=== PATIENT | female | born 1935 | race Caucasian/White ===

== ENCOUNTER 2019-04-20 01:55 | Emergency (ER) | payer MEDICARE, OTHER ==
[2019-04-20] MEDS ORDERED: cloNIDine 0.1 MG TAB ONE (02:21)
== END 2019-04-20 03:38 | disposition home or self-care (01) ==
LOC: ERS 01:55
DX: I10 Essential (primary) hypertension (principal); Z79.899 Other long term (current) drug therapy
CPT/HCPCS: 99283

== ENCOUNTER 2019-08-28 08:56 | Observation (INO) | payer MEDICARE, OTHER ==
[2019-08-28 09:38] LABS: #Lymphocytes 0.9 thou/uL (1.20-3.40); #Monocytes 0.5 thou/uL (0.11-0.59); #Neutrophils 6.6 thou/uL (1.40-6.50); %Basophils 0.4 % (0.0-1.0); %Eosinophils 0.4 % (0.0-10.0); %Lymphocytes 11.7 % (21.0-51.0); %Monocytes 5.7 % (0.0-10.0); %Neutrophils 81.8 % (42.0-75.0); Hemoglobin 15.1 g/dL (12.0-16.0); Mean Corpuscular HGB CONC 33.4 g/dL (32.0-36.0); Mean Corpuscular Hemoglobin 31.9 pg (27.0-31.0); Mean Corpuscular Volume 95.8 fL (78.0-98.0); Mean Platelet Volume 6.6 fL (7.4-10.4); Platelet Count 260 thou/uL (130-400); RBC Distribution Width 12.4 % (11.5-14.5); Red Blood Cell (RBC) Count 4.73 mill/uL (4.20-5.40); White Blood Cell (WBC) Count 8.1 thou/uL (4.8-10.8)
[2019-08-28 09:44] LABS: INR-International Normal Ratio 2.3; Prothrombin Time 25.3 SEC (12.0-14.7)
[2019-08-28 10:02] LABS: ALT (SGPT) 13 U/L (8-55); AST (SGOT) 19 U/L (5-34); Albumin 4.2 g/dL (3.4-4.8); Alkaline Phosphatase 118 U/L (40-110); Anion Gap 12 mmol/L (10-20); BUN (Urea Nitrogen) 15 mg/dL (9.8-20.1); Bilirubin, Total 1.6 mg/dL (0.2-1.2); Calc. Creatinine Clearance 0 mL/min (70-130); Calcium 10.3 mg/dL (7.8-10.44); Carbon Dioxide 29 mmol/L (23-31); Chloride 102 mmol/L (98-107); Estimated GFR-MDRD 64; Globulin 3.3 g/dL (2.4-3.5); Glucose 146 mg/dL (83-110); Protein, Total 7.5 g/dL (6.0-8.3); Sodium 140 mmol/L (136-145)
[2019-08-28] MEDS ORDERED: Magnesium 2 GM/50 ML BAG (IN WATER) ONE (10:30)
[2019-08-28] MEDS ORDERED: Potassium Chloride 40 MEQ in Sodium Chloride 0.9% 250 ML 250 ML IVPB SCH (10:45)
[2019-08-28] MEDS ORDERED: Sodium Chloride 0.9% 1,000 ML IV SCH (12:15)
--- NOTE | 2019-08-28 12:21 | PDOC.HHP ---
Hospitalist HPI - History of Present Illness GI bleed History of Present Illness: The patient is a 83/F with PMH significant for chronic afib on xarelto, that presents to the ER for the above complaint. Patient reports at approximately 0130 this morning, she saw BRB in the commode after having a BM. Unsure of quantity. Reports having one more episode and reports small amount of blood on toilet tissue, but has not had any episodes since. Denies any abdominal pain. Denies pain with BM. Denies hematemesis, light headedness, dizziness or nausea. Last colonoscopy in the 80s per patient, no abnormal findings. ED Course: BP: 161/80, MAP: 107, Pulse: 77, Resp: 21, Pain: 0, O2 sat: 96 on (Room Air) EKG afib, rate controlled 80s, with prolong QT FOBT + Hgb 15.1 Hct 45.3 PT 25.3 PTT 40 INR 2.3 K+ 3.0 Mg 2.0 Given 40mEQ K IVPB 2 gm Mg IVPB Hospitalist ROS - Review of Systems Constitutional: denies: fever, chills, sweats, weakness, malaise, other ENT: denies: ear pain, ear discharge, nose pain, nose discharge, nose congestion , mouth pain, mouth swelling, throat pain, throat swelling, other Respiratory: denies: cough, dry, shortness of breath, hemoptysis, SOB with excertion, pleuritic pain, sputum, wheezing, other Cardiovascular: denies: chest pain, palpitations, orthopnea, paroxysmal noc. dyspnea, edema, light headedness, other Gastrointestinal: reports: hematochezia. denies: nausea, vomiting, abdominal pain, diarrhea, constipation Genitourinary: denies: dysuria, frequency, incontinence, hematuria, retention, other Musculoskeletal: denies: back pain Skin: denies: rash, bruising Neurological: denies: weakness, numbness, incoordination, change in speech, confusion, seizures, other Hospitalist History - Past Medical History Source: patient Cardiac: reports: AFIB, HTN, Hyperlipidemia - Past Surgical History Past Surgical History: reports: Hysterectomy, Other Other Surgical History: Left hip surgery 2007 - Family History Family History: reports: hypertension - Social History Smoking Status: Never smoker Alcohol: reports: None Drugs: reports: none Living Situation: With Family 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, retired tax worker Activity level: independent ambulation - Exam General Appearance: NAD, awake alert Eye: anicteric sclera Neck: supple, no JVD, no thyromegaly Heart: no murmur, no gallops, no rubs, normal peripheral pulses, irregular Respiratory: CTAB, no wheezes, no rales, no ronchi, no tachypnea Gastrointestinal: soft, non-tender, non-distended, normal bowel sounds, no guarding, no rigidity Extremities: no cyanosis, no clubbing Extremities - other findings: trace edema BLE Neurological: no focal deficits Musculoskeletal: normal tone, normal strength Psychiatric: normal affect, A&O x 3 Hospitalist Results - Labs Result Diagrams: 08/28/19 09:28 08/28/19: Lab results: WBC 8.1 thou/uL (4.8-10.8) 08/28/19: Hgb 15.1 g/dL (12.0-16.0) 08/28/19: Hct 45.3 % (36.0-47.0) 08/28/19: MCV 95.8 fL (78.0-98.0) 08/28/19: Plt Count 260 thou/uL (130-400) 08/28/19: Neutrophils % 81.8 % (42.0-75.0) H 08/28/19: Sodium 140 mmol/L (136-145) 08/28/19: Potassium 3.0 mmol/L (3.5-5.1) L 08/28/19: Chloride 102 mmol/L (98-107) 08/28/19: Carbon Dioxide 29 mmol/L (23-31) 08/28/19: BUN 15 mg/dL (9.8-20.1) 08/28/19: Creatinine 0.84 mg/dL (0.6-1.1) 08/28/19:28 Glucose 146 mg/dL (83-110) H 08/28/19: Calcium 10.3 mg/dL (7.8-10.44) 08/28/19: Total Bilirubin 1.6 mg/dL (0.2-1.2) H 08/28/19 09:28 AST 19 U/L (5-34) 08/28/19 09:28 ALT 13 U/L (8-55) 08/28/19 09:28 Alkaline Phosphatase 118 U/L (40-110) H 08/28/19 09:28 Serum Total Protein 7.5 g/dL (6.0-8.3) 08/28/19 09:28 Albumin 4.2 g/dL (3.4-4.8) 08/28/19 09:28 - EKG Interpretation EKG: afib, rate controlled Hospitalist H&P A/P - Plan Plan: Impression GI bleed Chronic Afib, rate controlled Chronic anticoagulation, Xarelto HTN HLD Plan threat monitoring analyst Stop anticoagulation trend Hgb/Hct Consult GI Hypokalemia, 3.0 Relative low magnesium CL diet GI prophylaxis Hold xarelto and all anticoagulation medications Restart home meds when reconciled Recheck CMP, CBC and Mg in am Full Code [id number] is yazan, .
[2019-08-28] MEDS ORDERED: hydrALAZINE 20 MG/ML VIAL SLOW IVP PRN (12:34)
[2019-08-28 12:38] LABS: Hemoglobin 14.8 g/dL (12.0-16.0)
[2019-08-28] MEDS ORDERED: Polyethylene Glycol 3350 17 GM Packet PO PRN (14:33)
[2019-08-28 15:30] VITALS: BMI 24.9
[2019-08-28 17:53] LABS: Hemoglobin 14.8 g/dL (12.0-16.0)
[2019-08-28 20:58] LABS: Hemoglobin 14.7 g/dL (12.0-16.0)
[2019-08-28] MEDS ORDERED: Famotidine/PF 20 mg/2ml Vial SLOW IVP SCH (21:00)
[2019-08-28] MEDS ORDERED: Simvastatin 5 MG TAB PO SCH (21:00)
[2019-08-28] MEDS ORDERED: Hydrochlorothiazide 25 MG TAB PO SCH (21:00)
[2019-08-28] MEDS ORDERED: Losartan 25 MG TAB PO SCH (22:15)
[2019-08-29 04:59] LABS: #Eosinphils 0.3 thou/uL (0.0-0.7); #Lymphocytes 2.1 thou/uL (1.20-3.40); #Monocytes 0.8 thou/uL (0.11-0.59); #Neutrophils 5.4 thou/uL (1.40-6.50); %Basophils 0.5 % (0.0-1.0); %Eosinophils 3.9 % (0.0-10.0); %Lymphocytes 23.7 % (21.0-51.0); %Monocytes 9.6 % (0.0-10.0); %Neutrophils 62.3 % (42.0-75.0); Hemoglobin 13.3 g/dL (12.0-16.0); Mean Corpuscular HGB CONC 33.7 g/dL (32.0-36.0); Mean Corpuscular Hemoglobin 32.2 pg (27.0-31.0); Mean Corpuscular Volume 95.6 fL (78.0-98.0); Mean Platelet Volume 7.3 fL (7.4-10.4); Platelet Count 207 thou/uL (130-400); RBC Distribution Width 12.5 % (11.5-14.5); Red Blood Cell (RBC) Count 4.13 mill/uL (4.20-5.40); White Blood Cell (WBC) Count 8.7 thou/uL (4.8-10.8)
[2019-08-29 05:20] LABS: ALT (SGPT) 10 U/L (8-55); AST (SGOT) 17 U/L (5-34); Albumin 3.5 g/dL (3.4-4.8); Alkaline Phosphatase 100 U/L (40-110); Anion Gap 11 mmol/L (10-20); BUN (Urea Nitrogen) 11 mg/dL (9.8-20.1); Bilirubin, Total 2.1 mg/dL (0.2-1.2); Calc. Creatinine Clearance 54 mL/min (70-130); Calcium 9.5 mg/dL (7.8-10.44); Carbon Dioxide 27 mmol/L (23-31); Chloride 105 mmol/L (98-107); Estimated GFR-MDRD 76; Globulin 2.6 g/dL (2.4-3.5); Glucose 99 mg/dL (83-110); Magnesium 2.1 mg/dL (1.6-2.6); Potassium 3.3 mmol/L (3.5-5.1); Protein, Total 6.1 g/dL (6.0-8.3); Sodium 140 mmol/L (136-145)
--- NOTE | 2019-08-29 07:18 | PDOC.HOSPP ---
- Subjective Encounter Date: 08/29/19 Encounter Time: 11:45 Subjective: Patient without further bleeding in toilet, just a little on toilet paper. No dizziness/weakness. Had hard BM with first bloody stool yesterday. Ready to go home. - Objective Vital Signs & Weight: Vital Signs (12 hours) Temp Pulse Resp BP Pulse Ox 08/29/19 03:04 97.6 F 75 16 145/63 H 94 L 08/28/19 19:40 98.6 F 85 16 175/78 H 95 Weight Weight 134 lb 9.6 oz I&O: 08/28/19 08/29/19 08/30/19 06:59 06:59 06:59 Intake Total 1340 Output Total 1400 Balance -60 Result Diagrams: 08/29/19 09:12 08/29/19 04:36 Hospitalist ROS - Review of Systems Constitutional: denies: fever, chills Respiratory: denies: cough, shortness of breath Cardiovascular: denies: chest pain, palpitations Gastrointestinal: reports: constipation. denies: nausea, vomiting, abdominal pain - Medication Medications: Active Medications Generic Name Dose Route Start Last Admin Trade Name Freq PRN Reason Stop Dose Admin Hydrochlorothiazide 25 mg 08/28/19 21:00 08/28/19 21:26 Hydrochlorothiazide PO 25 mg HS MELVI Administration Metoprolol Succinate 100 mg 08/28/19 21:00 08/28/19 21:27 Toprol Xl PO 100 mg HS MELVI Administration Simvastatin 10 mg 08/28/19 21:00 08/28/19 21:26 Zocor PO 10 mg HS MELVI Administration Sodium Chloride 10 ml 08/28/19 12:08 08/28/19 21:29 Flush - Normal Saline IVF 10 ml Q12H PRN Administration Saline Flush - Exam General Appearance: NAD, awake alert Eye: PERRL Eye - other findings: mild left conjunctival erythema, no hemorrhage, no exudate ENT: moist mucosa Heart: RRR, no murmur, no gallops, no rubs Respiratory: CTAB, no wheezes, no rales, no ronchi Gastrointestinal: soft, non-tender, non-distended, normal bowel sounds Psychiatric: normal affect, normal behavior, A&O x 3 Hosp A/P (1) Lower GI bleed Code(s): K92.2 - GASTROINTESTINAL HEMORRHAGE, UNSPECIFIED Status: Resolved (2) Chronic anticoagulation Code(s): Z79.01 - SLEEVE WHEEL [employer]KER (CURRENT) USE OF ANTICOAGULANTS Status: Chronic (3) Atrial fibrillation Code(s): I48.91 - UNSPECIFIED ATRIAL FIBRILLATION Status: Chronic (4) HTN (hypertension) Code(s): I10 - ESSENTIAL (PRIMARY) HYPERTENSION Status: Chronic (5) HLD (hyperlipidemia) Code(s): E78.5 - HYPERLIPIDEMIA, UNSPECIFIED Status: Chronic - Plan H/H stable, no significant further bleeding. Hx of constipation with hemorrhoidal bleed. Stable to resume Xarelto and d/c home. Daily Miralax to keep BM soft. F/u GI outpatient.
[2019-08-29 08:20] VITALS: TEMP 97.5
[2019-08-29] MEDS ORDERED: Losartan 25 MG TAB PO SCH ×2 (09:00→21:00)
[2019-08-29] MEDS ORDERED: Pantoprazole 40 MG VIAL IVP SCH (09:00)
[2019-08-29 09:39] LABS: Hemoglobin 16.2 g/dL (12.0-16.0)
[2019-08-29] MEDS ORDERED: Potassium Chloride 20 MEQ TAB PO SCH (12:00)
[2019-08-29 12:01] VITALS: BP 179/80
--- NOTE | 2019-08-30 09:29 | DIS ---
DATE OF ADMISSION: 08/28/2019 DATE OF DISCHARGE: 08/29/2019 PRIMARY CARE PHYSICIAN: Deejay Hameed DO REASON FOR ADMISSION: Gastrointestinal bleed. DIAGNOSES ON DISCHARGE: 1. Lower gastrointestinal bleed, likely hemorrhoidal, resolved. 2. Chronic anticoagulation with Xarelto. 3. Atrial fibrillation. 4. Hypertension. 5. Hyperlipidemia. 6. Irritant conjunctivitis. PROCEDURES: None. CONSULTATIONS: None. SUMMARY OF HOSPITAL COURSE: This is an 83-year-old white female, on Xarelto for the last 5 years. She has had longstanding problems with hard bowel movements, has occasionally had some blood on the toilet paper when she wipes, thought to be from hemorrhoidal bleeding in the past. She reports that on the morning of admission, she went to the [facility], had a hard bowel movement, and saw lots of bright red blood in the commode. She had one more episode, and then after that, small amounts of blood on the toilet tissue, and so she came into the emergency room. She had no other symptoms. She had normal hemoglobin and hematocrit when she came in. She was observed overnight, had no further bloody bowel movements, just a little bit of blood on the toilet paper. Her hemoglobin remained between 13 and 16 during her hospitalization. She had no dizziness, lightheadedness, or weakness with ambulation, and she is now stable to be discharged to home. Of note, she did have some redness in her left eye the second hospital day. She reports that she has recurrent problems with this. On exam, it looks like she has a mild conjunctivitis without any discharge and I recommend she continue the eyedrops she uses at home for this. DISCHARGE MANAGEMENT: Discharged to home. ACTIVITY: As tolerated. DIET: Healthy heart diet. FOLLOWUP: Follow up with Dr. Hameed in [address] Aldana in 2 to 3 weeks, call his office for an appointment. DISCHARGE MEDICATIONS: 1. MiraLAX 17 g p.o. daily as needed to keep bowel movements soft. 2. Hydrochlorothiazide 25 mg at night. 3. Losartan 100 mg at night. 4. Toprol-XL 100 mg at night. 5. Pravastatin 20 mg at night. 6. Xarelto 20 mg at night. Job ID: [id number]
== END 2019-08-29 13:21 | disposition home or self-care (01) ==
LOC: ERS 08:56 → ERHOLD 11:18 → 2SW 14:44
PROVIDERS: ADMIT Emergency Medicine; ATTEND Emergency Medicine
DX: K92.1 Melena (principal); I48.20 Chronic atrial fibrillation, unspecified; I10 Essential (primary) hypertension; E78.5 Hyperlipidemia, unspecified; E87.6 Hypokalemia; H10.9 Unspecified conjunctivitis; Z79.01 Long term (current) use of anticoagulants; Z79.899 Other long term (current) drug therapy; Z88.2 Allergy status to sulfonamides
CPT/HCPCS: 80053 ×2; 82274; 83735 ×2; 85014 ×3; 85018 ×3; 85025 ×2; 85610; 85730; 93005; 96365; 96366 ×2; 96367; 96375; 97139; 99284; G0378 ×3; 36415; C9113; J3475; J3480; J7050

== ENCOUNTER 2020-09-03 15:40 | Inpatient (IN) | payer MEDICARE, OTHER ==
[~2020-09-03 15:40] MED LIST: Iopamidol-370 76% 500 ML 1 ML ONE
[2020-09-03] MEDS ORDERED: Morphine 4 MG/ML VIAL ONE (16:21)
[2020-09-03] MEDS ORDERED: Ondansetron PF 4 MG/2 ML Vial ONE (16:22)
[2020-09-03 16:23] LABS: #Basophils 0.1 thou/uL (0.0-0.2); #Lymphocytes 1.4 thou/uL (1.20-3.40); #Monocytes 1.7 thou/uL (0.11-0.59); #Neutrophils 16.8 thou/uL (1.40-6.50); %Basophils 0.3 % (0.0-1.0); %Eosinophils 0.1 % (0.0-10.0); %Lymphocytes 7.2 % (21.0-51.0); %Monocytes 8.3 % (0.0-10.0); %Neutrophils 84.2 % (42.0-75.0); Hemoglobin 16.1 g/dL (12.0-16.0); Mean Corpuscular Hemoglobin 32.1 pg (27.0-31.0); Mean Corpuscular Volume 94.4 fL (78.0-98.0); Mean Platelet Volume 7.2 fL (7.4-10.4); Platelet Count 283 thou/uL (130-400); RBC Distribution Width 12.7 % (11.5-14.5); Red Blood Cell (RBC) Count 5.01 mill/uL (4.20-5.40); White Blood Cell (WBC) Count 19.9 thou/uL (4.8-10.8)
[2020-09-03 16:38] LABS: ALT (SGPT) 23 U/L (8-55); AST (SGOT) 74 U/L (5-34); Albumin 3.8 g/dL (3.4-4.8); Alkaline Phosphatase 226 U/L (40-110); Anion Gap 18 mmol/L (10-20); BUN (Urea Nitrogen) 18 mg/dL (9.8-20.1); Bilirubin, Total 4.4 mg/dL (0.2-1.2); Calc. Creatinine Clearance 0 mL/min (70-130); Calcium 9.7 mg/dL (7.8-10.44); Carbon Dioxide 24 mmol/L (23-31); Chloride 96 mmol/L (98-107); Globulin 3.7 g/dL (2.4-3.5); Glucose 148 mg/dL (83-110); Lipase 126 U/L (8-78); Potassium 3.5 mmol/L (3.5-5.1); Protein, Total 7.5 g/dL (5.8-8.1); Sodium 134 mmol/L (136-145)
[2020-09-03] MEDS ORDERED: Piperacillin/Tazobactam 4.5 GM VIAL ONE (17:13)
[2020-09-03 17:42] LABS: Clarity Turbid (Clear); Specific Gravity, Urine 1.028 (1.002-1.036)
[2020-09-03 18:04] LABS: Bacteria/HPF Rare-Few HPF (None Seen)
[2020-09-03 19:22] LABS: Lactic Acid 0.9 mmol/L (0.5-2.2)
[2020-09-03] MEDS ORDERED: Acetaminophen 325 MG TAB PO PRN (19:36)
[2020-09-03] MEDS ORDERED: Ondansetron PF 4 MG/2 ML Vial IVP PRN (19:36)
[2020-09-03] MEDS ORDERED: Sodium Chloride 0.9% 1,000 ML IV SCH (19:45)
[2020-09-03] MEDS ORDERED: Morphine 2 MG/ML VIAL SLOW IVP PRN (19:46)
[2020-09-03] MEDS ORDERED: Morphine 4 MG/ML VIAL SLOW IVP PRN (19:46)
[2020-09-03 22:20] VITALS: BMI 26.2
[2020-09-03] MEDS: Piperacillin/Tazobactam 4.5 GM in Sodium Chloride 0.9% 100 ML IVPB SCH (23:56)
[2020-09-03] MEDS ORDERED: Piperacillin/Tazobactam 4.5 GM in Sodium Chloride 0.9% 100 ML IVPB SCH (23:59)
[2020-09-04] MEDS: Piperacillin/Tazobactam 4.5 GM in Sodium Chloride 0.9% 100 ML IVPB SCH ×3 (05:10→18:03)
[2020-09-04 07:04] LABS: SARS-CoV-2 PCR by NAA Not Detected (NotDetected)
[2020-09-04 07:24] LABS: #Lymphocytes 0.9 thou/uL (1.20-3.40); #Monocytes 1.1 thou/uL (0.11-0.59); #Neutrophils 13.3 thou/uL (1.40-6.50); %Basophils 0.1 % (0.0-1.0); %Eosinophils 0.1 % (0.0-10.0); %Lymphocytes 6.1 % (21.0-51.0); %Neutrophils 86.6 % (42.0-75.0); Hemoglobin 13.5 g/dL (12.0-16.0); Mean Corpuscular Hemoglobin 31.7 pg (27.0-31.0); Mean Corpuscular Volume 96.1 fL (78.0-98.0); Mean Platelet Volume 7.1 fL (7.4-10.4); Platelet Count 207 thou/uL (130-400); RBC Distribution Width 12.5 % (11.5-14.5); Red Blood Cell (RBC) Count 4.26 mill/uL (4.20-5.40); White Blood Cell (WBC) Count 15.4 thou/uL (4.8-10.8)
[2020-09-04 07:44] LABS: ALT (SGPT) 121 U/L (8-55); AST (SGOT) 159 U/L (5-34); Alkaline Phosphatase 291 U/L (40-110); Anion Gap 13 mmol/L (10-20); BUN (Urea Nitrogen) 16 mg/dL (9.8-20.1); Bilirubin, Total 6.1 mg/dL (0.2-1.2); Calc. Creatinine Clearance 62 mL/min (70-130); Calcium 8.4 mg/dL (7.8-10.44); Carbon Dioxide 23 mmol/L (23-31); Chloride 104 mmol/L (98-107); Globulin 2.6 g/dL (2.4-3.5); Glucose 120 mg/dL (83-110); Protein, Total 5.6 g/dL (5.8-8.1); Sodium 137 mmol/L (136-145)
[2020-09-04] MEDS ORDERED: Potassium Chloride 20 MEQ TAB PO SCH (08:45)
[2020-09-04] MEDS: Hydrochlorothiazide 25 MG TAB PO SCH (20:16)
[2020-09-04] MEDS: Atorvastatin Calcium 10 MG TAB PO SCH (20:16)
[2020-09-04] MEDS: Losartan 25 MG TAB PO SCH (20:16)
[2020-09-04] MEDS ORDERED: Pravastatin Sodium 20 MG TAB PO SCH (21:00)
[2020-09-05] MEDS: Piperacillin/Tazobactam 4.5 GM in Sodium Chloride 0.9% 100 ML IVPB SCH ×5 (00:28→23:21)
[2020-09-05 05:28] LABS: #Eosinphils 0.2 thou/uL (0.0-0.7); #Lymphocytes 1.4 thou/uL (1.20-3.40); #Neutrophils 11.2 thou/uL (1.40-6.50); %Basophils 0.3 % (0.0-1.0); %Eosinophils 1.5 % (0.0-10.0); %Lymphocytes 9.8 % (21.0-51.0); %Monocytes 7.1 % (0.0-10.0); %Neutrophils 81.3 % (42.0-75.0); Hemoglobin 13.3 g/dL (12.0-16.0); Mean Corpuscular HGB CONC 33.2 g/dL (32.0-36.0); Mean Corpuscular Volume 96.4 fL (78.0-98.0); Mean Platelet Volume 7.1 fL (7.4-10.4); Platelet Count 226 thou/uL (130-400); RBC Distribution Width 12.5 % (11.5-14.5); Red Blood Cell (RBC) Count 4.17 mill/uL (4.20-5.40); White Blood Cell (WBC) Count 13.7 thou/uL (4.8-10.8)
[2020-09-05 05:50] LABS: ALT (SGPT) 77 U/L (8-55); AST (SGOT) 58 U/L (5-34); Albumin 3.1 g/dL (3.4-4.8); Alkaline Phosphatase 231 U/L (40-110); Anion Gap 12 mmol/L (10-20); BUN (Urea Nitrogen) 12 mg/dL (9.8-20.1); Bilirubin, Total 3.1 mg/dL (0.2-1.2); Calc. Creatinine Clearance 61 mL/min (70-130); Calcium 8.7 mg/dL (7.8-10.44); Carbon Dioxide 26 mmol/L (23-31); Chloride 104 mmol/L (98-107); Globulin 2.6 g/dL (2.4-3.5); Glucose 97 mg/dL (83-110); Protein, Total 5.7 g/dL (5.8-8.1); Sodium 139 mmol/L (136-145)
[2020-09-05 05:53] LABS: Potassium 2.8 mmol/L (3.5-5.1)
[2020-09-05] MEDS: Potassium Chloride 20 MEQ in Premix Bag 1 BAG IVPB SCH ×2 (06:23→14:17)
[2020-09-05] MEDS ORDERED: Indomethacin 50 MG SUPP ONE (07:52)
[2020-09-05] MEDS ORDERED: Iothalamate Meglumine 60% 50 ML VIAL FS ONE (07:53)
[2020-09-05] MEDS ORDERED: Sodium Chloride 0.9% 10 ML ONE (08:52)
[2020-09-05] MEDS ORDERED: PROPOFOL 200 MG/20 ML VIAL ONE (09:50)
[2020-09-05] MEDS ORDERED: Lidocaine 1% PF 5 ML VIAL ONE (09:50)
[2020-09-05] MEDS ORDERED: Dexamethasone 20 MG/5 ML VIAL ONE (09:50)
[2020-09-05] MEDS ORDERED: Ondansetron PF 4 MG/2 ML Vial ONE (09:50)
[2020-09-05] MEDS ORDERED: Rocuronium Bromide 10 MG/ML (10ML VIAL) ONE (09:50)
[2020-09-05] MEDS ORDERED: Fentanyl 100 MCG/2 ML VIAL ONE (12:00)
[2020-09-05] MEDS ORDERED: SUGAMMADEX SODIUM 200 MG/2 ML VIAL ONE (12:51)
[2020-09-05] MEDS ORDERED: Promethazine HCl 25 MG/ML VIAL SLOW IVP PRN (13:15)
[2020-09-05] MEDS ORDERED: Ondansetron HCl/PF 4 MG/2 ML Vial IVP PRN (13:15)
[2020-09-05] MEDS ORDERED: Promethazine HCl 25 MG/ML VIAL IM PRN (13:15)
[2020-09-05 20:36] LABS: Anion Gap 26 mmol/L (10-20); BUN (Urea Nitrogen) 18 mg/dL (9.8-20.1); Calc. Creatinine Clearance 51 mL/min (70-130); Carbon Dioxide 11 mmol/L (23-31); Chloride 110 mmol/L (98-107); Glucose 165 mg/dL (83-110); Potassium 4.7 mmol/L (3.5-5.1); Sodium 142 mmol/L (136-145)
[2020-09-05] MEDS: Atorvastatin Calcium 10 MG TAB PO SCH (20:49)
[2020-09-05] MEDS: Hydrochlorothiazide 25 MG TAB PO SCH (20:50)
[2020-09-05] MEDS: Losartan 25 MG TAB PO SCH (20:54)
[2020-09-06 04:50] LABS: #Lymphocytes 0.8 thou/uL (1.20-3.40); #Monocytes 0.3 thou/uL (0.11-0.59); #Neutrophils 8.7 thou/uL (1.40-6.50); %Basophils 0.1 % (0.0-1.0); %Eosinophils 0.1 % (0.0-10.0); %Lymphocytes 8.1 % (21.0-51.0); %Monocytes 2.9 % (0.0-10.0); %Neutrophils 88.8 % (42.0-75.0); Hemoglobin 14.3 g/dL (12.0-16.0); Mean Corpuscular HGB CONC 33.7 g/dL (32.0-36.0); Mean Corpuscular Hemoglobin 32.4 pg (27.0-31.0); Mean Corpuscular Volume 96.1 fL (78.0-98.0); Mean Platelet Volume 7.3 fL (7.4-10.4); Platelet Count 242 thou/uL (130-400); RBC Distribution Width 12.4 % (11.5-14.5); White Blood Cell (WBC) Count 9.8 thou/uL (4.8-10.8)
[2020-09-06 05:02] LABS: ALT (SGPT) 60 U/L (8-55); AST (SGOT) 32 U/L (5-34); Albumin 3.3 g/dL (3.4-4.8); Alkaline Phosphatase 250 U/L (40-110); Anion Gap 14 mmol/L (10-20); BUN (Urea Nitrogen) 21 mg/dL (9.8-20.1); Bilirubin, Total 2.4 mg/dL (0.2-1.2); Calc. Creatinine Clearance 49 mL/min (70-130); Calcium 8.6 mg/dL (7.8-10.44); Carbon Dioxide 25 mmol/L (23-31); Chloride 103 mmol/L (98-107); Globulin 3.1 g/dL (2.4-3.5); Glucose 169 mg/dL (83-110); Lipase 16 U/L (8-78); Potassium 3.3 mmol/L (3.5-5.1); Protein, Total 6.4 g/dL (5.8-8.1); Sodium 139 mmol/L (136-145)
[2020-09-06] MEDS: Piperacillin/Tazobactam 4.5 GM in Sodium Chloride 0.9% 100 ML IVPB SCH ×2 (05:42→11:18)
[2020-09-06] MEDS ORDERED: Potassium Chloride 20 MEQ TAB PO SCH (06:15)
[2020-09-06] MEDS ORDERED: Enoxaparin Sodium 40 MG/0.4 ML SYRINGE SC SCH (11:15)
[2020-09-06] MEDS: Piperacillin/Tazobactam 3.375 GM in Sodium Chloride 0.9% 100 ML IVPB SCH (17:45)
[2020-09-06] MEDS: Hydrochlorothiazide 25 MG TAB PO SCH (20:56)
[2020-09-06] MEDS: Atorvastatin Calcium 10 MG TAB PO SCH (20:56)
[2020-09-06] MEDS: Losartan 25 MG TAB PO SCH (20:56)
[2020-09-06] MEDS: 1/2 NS w/KCL 20 mEq 1,000 ML IV SCH (22:03)
[2020-09-07] MEDS: Piperacillin/Tazobactam 3.375 GM in Sodium Chloride 0.9% 100 ML IVPB SCH ×4 (00:30→18:38)
[2020-09-07 05:00] LABS: #Eosinphils 0.1 thou/uL (0.0-0.7); #Lymphocytes 1.6 thou/uL (1.20-3.40); #Monocytes 0.6 thou/uL (0.11-0.59); #Neutrophils 8.9 thou/uL (1.40-6.50); %Basophils 0.2 % (0.0-1.0); %Eosinophils 0.9 % (0.0-10.0); %Lymphocytes 14.6 % (21.0-51.0); %Monocytes 5.3 % (0.0-10.0); Hemoglobin 13.9 g/dL (12.0-16.0); Mean Corpuscular HGB CONC 33.3 g/dL (32.0-36.0); Mean Corpuscular Hemoglobin 31.9 pg (27.0-31.0); Mean Corpuscular Volume 95.8 fL (78.0-98.0); Mean Platelet Volume 7.2 fL (7.4-10.4); Platelet Count 237 thou/uL (130-400); RBC Distribution Width 12.6 % (11.5-14.5); Red Blood Cell (RBC) Count 4.35 mill/uL (4.20-5.40); White Blood Cell (WBC) Count 11.3 thou/uL (4.8-10.8)
[2020-09-07 05:25] LABS: ALT (SGPT) 45 U/L (8-55); AST (SGOT) 24 U/L (5-34); Albumin 3.3 g/dL (3.4-4.8); Alkaline Phosphatase 187 U/L (40-110); Anion Gap 13 mmol/L (10-20); BUN (Urea Nitrogen) 19 mg/dL (9.8-20.1); Bilirubin, Total 1.8 mg/dL (0.2-1.2); Calc. Creatinine Clearance 51 mL/min (70-130); Calcium 8.7 mg/dL (7.8-10.44); Carbon Dioxide 23 mmol/L (23-31); Chloride 106 mmol/L (98-107); Globulin 2.8 g/dL (2.4-3.5); Glucose 100 mg/dL (83-110); Protein, Total 6.1 g/dL (5.8-8.1); Sodium 139 mmol/L (136-145)
[2020-09-07] MEDS ORDERED: Potassium Chloride 20 MEQ TAB PO SCH (09:15)
[2020-09-07] MEDS ORDERED: Lidocaine 1% PF 5 ML VIAL ONE (10:38)
[2020-09-07] MEDS ORDERED: Glycopyrrolate 0.2 MG/ML 5 ML SYRINGE ONE (10:38)
[2020-09-07] MEDS ORDERED: Esmolol 100 MG/10 ML VIAL ONE (10:38)
[2020-09-07] MEDS ORDERED: Rocuronium Bromide 10 MG/ML (10ML VIAL) ONE (10:38)
[2020-09-07] MEDS ORDERED: Dexamethasone 20 MG/5 ML VIAL ONE (10:38)
[2020-09-07] MEDS ORDERED: PHENYLEPHRINE-NS 100 MCG/ML 10 ML SYRINGE ONE (10:38)
[2020-09-07] MEDS ORDERED: PROPOFOL 200 MG/20 ML VIAL ONE (10:38)
[2020-09-07] MEDS ORDERED: Bupivacaine 0.25% HCL 30 ML VIAL ONE (14:04)
[2020-09-07] MEDS ORDERED: Lidocaine 1% w/Epinephrine 1:100K 20 ML VIAL ONE (14:04)
[2020-09-07] MEDS ORDERED: Fentanyl 100 MCG/2 ML VIAL ONE (14:05)
[2020-09-07] MEDS ORDERED: HYDROcodone/Acetaminophen 7.5/325 mg Tablet PO PRN (15:23)
[2020-09-07] MEDS ORDERED: traMADol HCl 50 MG TAB PO PRN (15:23)
[2020-09-07] MEDS ORDERED: Promethazine HCl 25 MG/ML VIAL IM PRN (15:35)
[2020-09-07] MEDS ORDERED: Promethazine HCl 25 MG/ML VIAL SLOW IVP PRN (15:35)
[2020-09-07] MEDS ORDERED: Ondansetron HCl/PF 4 MG/2 ML Vial IVP PRN (15:35)
[2020-09-07] MEDS ORDERED: HYDROmorphone 2 MG/ML VIAL SLOW IVP PRN (15:35)
[2020-09-07] MEDS: 1/2 NS w/KCL 20 mEq 1,000 ML IV SCH (16:39)
[2020-09-07] MEDS ORDERED: hydrALAZINE 20 MG/ML VIAL SLOW IVP PRN (17:42)
[2020-09-07] MEDS: Losartan 25 MG TAB PO SCH (20:54)
[2020-09-07] MEDS: Hydrochlorothiazide 25 MG TAB PO SCH (20:54)
[2020-09-07] MEDS: Atorvastatin Calcium 10 MG TAB PO SCH (20:54)
[2020-09-08] MEDS: Piperacillin/Tazobactam 3.375 GM in Sodium Chloride 0.9% 100 ML IVPB SCH ×3 (00:34→11:24)
[2020-09-08] MEDS: 1/2 NS w/KCL 20 mEq 1,000 ML IV SCH ×2 (02:10→08:21)
[2020-09-08 04:41] LABS: #Lymphocytes 0.8 thou/uL (1.20-3.40); #Monocytes 0.5 thou/uL (0.11-0.59); #Neutrophils 11.7 thou/uL (1.40-6.50); %Basophils 0.1 % (0.0-1.0); %Lymphocytes 6.2 % (21.0-51.0); %Monocytes 4.1 % (0.0-10.0); %Neutrophils 89.6 % (42.0-75.0); Hemoglobin 14.3 g/dL (12.0-16.0); Mean Corpuscular HGB CONC 34.1 g/dL (32.0-36.0); Mean Corpuscular Hemoglobin 32.8 pg (27.0-31.0); Mean Corpuscular Volume 96.1 fL (78.0-98.0); Mean Platelet Volume 6.9 fL (7.4-10.4); Platelet Count 253 thou/uL (130-400); RBC Distribution Width 12.6 % (11.5-14.5); Red Blood Cell (RBC) Count 4.36 mill/uL (4.20-5.40); White Blood Cell (WBC) Count 13.1 thou/uL (4.8-10.8)
[2020-09-08 05:07] LABS: ALT (SGPT) 34 U/L (8-55); AST (SGOT) 18 U/L (5-34); Albumin 3.2 g/dL (3.4-4.8); Alkaline Phosphatase 165 U/L (40-110); Anion Gap 14 mmol/L (10-20); BUN (Urea Nitrogen) 12 mg/dL (9.8-20.1); Bilirubin, Total 1.4 mg/dL (0.2-1.2); Calc. Creatinine Clearance 61 mL/min (70-130); Calcium 8.7 mg/dL (7.8-10.44); Carbon Dioxide 22 mmol/L (23-31); Chloride 105 mmol/L (98-107); Globulin 2.7 g/dL (2.4-3.5); Glucose 136 mg/dL (83-110); Potassium 3.7 mmol/L (3.5-5.1); Protein, Total 5.9 g/dL (5.8-8.1); Sodium 137 mmol/L (136-145)
[2020-09-08 12:53] VITALS: BP 144/95; TEMP 97.5
[2020-09-08] MEDS ORDERED: Hydrochlorothiazide 25 MG TAB PO SCH (21:00)
== END 2020-09-08 13:45 | disposition home or self-care (01) | DRG 418 ==
LOC: ERS 15:40 → SURG A 18:24 → 2NO 09-05 20:51
PROVIDERS: ADMIT Student in an Organized Health Care Education/Training Program; ATTEND Student in an Organized Health Care Education/Training Program
PROC: 0DJ08ZZ Inspection of Upper Intestinal Tract, Via Natural or Artificial Opening Endoscopic (ICD-10-PCS; principal; 2020-09-05)
PROC: 0FC98ZZ Extirpation of Matter from Common Bile Duct, Via Natural or Artificial Opening Endoscopic (ICD-10-PCS; 2020-09-05)
PROC: BF101ZZ Fluoroscopy of Bile Ducts using Low Osmolar Contrast (ICD-10-PCS; 2020-09-05)
PROC: 0FT44ZZ Resection of Gallbladder, Percutaneous Endoscopic Approach (ICD-10-PCS; 2020-09-07)
DX: K80.42 Calculus of bile duct with acute cholecystitis without obstruction (principal); I50.32 Chronic diastolic (congestive) heart failure; Z20.822 Contact with and (suspected) exposure to COVID-19; I11.0 Hypertensive heart disease with heart failure; I48.91 Unspecified atrial fibrillation; Z96.642 Presence of left artificial hip joint; R79.89 Other specified abnormal findings of blood chemistry; K44.9 Diaphragmatic hernia without obstruction or gangrene; E78.5 Hyperlipidemia, unspecified; Z90.710 Acquired absence of both cervix and uterus; Z88.2 Allergy status to sulfonamides; Z79.899 Other long term (current) drug therapy; Z79.01 Long term (current) use of anticoagulants; Z82.49 Family history of ischemic heart disease and other diseases of the circulatory system; E87.6 Hypokalemia
CPT/HCPCS: 36415; 74177; 74330; 76705; 80053; 81003; 82274; 83605; 83690; 83735; 83880; 84484; 85025; 87040; 87086; 87635; 88304; 93005; 93306; 96365; 96375; J0360; J1100; J1610; J1650; J2270; J2405; J2543; J2704; J3010; J3480; J3490; Q9967; S0020; U0003; U0005

== ENCOUNTER 2023-02-24 15:04 | Inpatient (IN) | payer MEDICARE, OTHER ==
[2023-02-24 16:20] LABS: #Eosinphils 0.1 thou/uL (0.0-0.7); #Monocytes 0.7 thou/uL (0.11-0.59); #Neutrophils 4.9 thou/uL (1.40-6.50); %Basophils 0.6 % (0.0-1.0); %Lymphocytes 18.3 % (21.0-51.0); %Monocytes 10.1 % (0.0-10.0); %Neutrophils 69.4 % (42.0-75.0); Hematocrit 28.7 % (36.0-47.0); Hemoglobin 8.8 g/dL (12.0-16.0); Mean Corpuscular HGB CONC 30.7 g/dL (32.0-36.0); Mean Corpuscular Hemoglobin 25.5 pg (27.0-31.0); Mean Corpuscular Volume 83.2 fl (78.0-98.0); Platelet Count 318 10x3/uL (130-400); RBC Distribution Width 15.1 % (11.5-14.5); Red Blood Cell (RBC) Count 3.45 mill/uL (4.20-5.40)
[2023-02-24 16:45] LABS: ALT (SGPT) 10 U/L (8-55); AST (SGOT) 17 U/L (5-34); Alkaline Phosphatase 108 U/L (40-110); Anion Gap 14 mmol/L (10-20); BUN (Urea Nitrogen) 19 mg/dL (9.8-20.1); Bilirubin, Total 1.2 mg/dL (0.2-1.2); Calc. Creatinine Clearance 0 mL/min (70-130); Calcium 9.7 mg/dL (7.8-10.44); Carbon Dioxide 26 mmol/L (23-31); Chloride 100 mmol/L (98-107); Estimated GFR 65; Globulin 2.9 g/dL (2.4-3.5); Glucose 112 mg/dL (83-110); Potassium 2.9 mmol/L (3.5-5.1); Protein, Total 6.9 g/dL (5.8-8.1); Sodium 137 mmol/L (136-145)
[2023-02-24] MEDS ORDERED: Pot Chloride/Pot Bicarb/Cit Ac 25 mEq Effervescent Tablet ONE (17:08)
[2023-02-24] MEDS ORDERED: Ondansetron PF 4 MG/2 ML Vial IVP PRN (19:45)
[2023-02-24] MEDS ORDERED: Acetaminophen 325 MG TAB PO PRN (19:45)
[2023-02-24] MEDS ORDERED: Ondansetron ODT 4 MG TAB SL PRN (19:45)
[2023-02-24 20:34] VITALS: BMI 22.2
[2023-02-24] MEDS ORDERED: Potassium Chloride 20 MEQ TAB PO SCH (20:45)
[2023-02-24] MEDS: Famotidine 20 MG TAB PO SCH (20:49)
[2023-02-24] MEDS ORDERED: Hydrochlorothiazide 25 MG TAB PO SCH (21:00)
[2023-02-24] MEDS ORDERED: Losartan 25 MG TAB PO SCH (21:00)
[2023-02-24 22:06] LABS: Hematocrit 28.5 % (36.0-47.0); Hemoglobin 8.6 g/dL (12.0-16.0); Mean Corpuscular HGB CONC 30.2 g/dL (32.0-36.0); Mean Corpuscular Volume 82.8 fl (78.0-98.0); Mean Platelet Volume 9.2 fL (7.4-10.4); Platelet Count 323 10x3/uL (130-400); RBC Distribution Width 15.2 % (11.5-14.5); Red Blood Cell (RBC) Count 3.44 mill/uL (4.20-5.40); White Blood Cell (WBC) Count 8.6 10x3/uL (4.8-10.8)
[2023-02-25 05:42] LABS: Hematocrit 25.9 % (36.0-47.0); Mean Corpuscular HGB CONC 30.9 g/dL (32.0-36.0); Mean Corpuscular Hemoglobin 25.2 pg (27.0-31.0); Mean Corpuscular Volume 81.7 fl (78.0-98.0); Mean Platelet Volume 9.1 fL (7.4-10.4); Platelet Count 239 10x3/uL (130-400); RBC Distribution Width 15.1 % (11.5-14.5); Red Blood Cell (RBC) Count 3.17 mill/uL (4.20-5.40); White Blood Cell (WBC) Count 5.6 10x3/uL (4.8-10.8)
[2023-02-25 06:08] LABS: ALT (SGPT) 8 U/L (8-55); AST (SGOT) 17 U/L (5-34); Albumin 3.3 g/dL (3.4-4.8); Alkaline Phosphatase 95 U/L (40-110); Anion Gap 10 mmol/L (10-20); BUN (Urea Nitrogen) 15 mg/dL (9.8-20.1); Bilirubin, Total 1.5 mg/dL (0.2-1.2); Calc. Creatinine Clearance 43 mL/min (70-130); Calcium 9.2 mg/dL (7.8-10.44); Carbon Dioxide 27 mmol/L (23-31); Chloride 103 mmol/L (98-107); Estimated GFR 73; Globulin 2.5 g/dL (2.4-3.5); Glucose 101 mg/dL (83-110); Protein, Total 5.8 g/dL (5.8-8.1); Sodium 136 mmol/L (136-145)
[2023-02-25] MEDS: Famotidine 20 MG TAB PO SCH (08:37)
[2023-02-25] MEDS ORDERED: Acetaminophen 325 MG TAB PO PRN (13:39)
[2023-02-25 14:02] LABS: Hematocrit 28.9 % (36.0-47.0); Hemoglobin 8.7 g/dL (12.0-16.0); Mean Corpuscular HGB CONC 30.1 g/dL (32.0-36.0); Mean Corpuscular Hemoglobin 25.1 pg (27.0-31.0); Mean Corpuscular Volume 83.3 fl (78.0-98.0); Mean Platelet Volume 9.2 fL (7.4-10.4); Platelet Count 323 10x3/uL (130-400); RBC Distribution Width 15.3 % (11.5-14.5); Red Blood Cell (RBC) Count 3.47 mill/uL (4.20-5.40); White Blood Cell (WBC) Count 6.8 10x3/uL (4.8-10.8)
[2023-02-25] MEDS ORDERED: GoLYTELY 4,000 ml Bottle PO SCH (16:00)
[2023-02-25] MEDS ORDERED: Famotidine 20 MG TAB PO SCH (21:00)
[2023-02-26 04:41] LABS: #Basophils 0.1 thou/uL (0.0-0.2); #Eosinphils 0.2 thou/uL (0.0-0.7); #Monocytes 0.7 thou/uL (0.11-0.59); #Neutrophils 3.6 thou/uL (1.40-6.50); %Basophils 0.8 % (0.0-1.0); %Lymphocytes 23.9 % (21.0-51.0); Hemoglobin 7.3 g/dL (12.0-16.0); Mean Corpuscular HGB CONC 31.7 g/dL (32.0-36.0); Mean Corpuscular Hemoglobin 25.4 pg (27.0-31.0); Mean Platelet Volume 9.1 fL (7.4-10.4); Platelet Count 243 10x3/uL (130-400); Red Blood Cell (RBC) Count 2.87 mill/uL (4.20-5.40)
[2023-02-26 04:55] LABS: Mean Corpuscular Volume 80.1 fl (78.0-98.0)
[2023-02-26 05:02] LABS: Anion Gap 11 mmol/L (10-20); BUN (Urea Nitrogen) 15 mg/dL (9.8-20.1); Calc. Creatinine Clearance 47 mL/min (70-130); Calcium 8.9 mg/dL (7.8-10.44); Carbon Dioxide 25 mmol/L (23-31); Chloride 105 mmol/L (98-107); Estimated GFR 81; Glucose 94 mg/dL (83-110); Potassium 3.4 mmol/L (3.5-5.1); Sodium 138 mmol/L (136-145)
[2023-02-26] MEDS ORDERED: Ketamine 50 MG/ML (10ML VIAL) ONE (08:04)
[2023-02-26] MEDS ORDERED: Dexmedetomidine 200 MCG/2 ML VIAL ONE (08:04)
[2023-02-26] MEDS ORDERED: PROPOFOL 200 MG/20 ML VIAL ONE (08:23)
[2023-02-26] MEDS ORDERED: Ondansetron HCl/PF 4 MG/2 ML Vial IVP PRN (08:24)
[2023-02-26] MEDS ORDERED: Promethazine HCl 25 MG/ML VIAL IM PRN (08:24)
[2023-02-26 10:40] VITALS: TEMP 97.5
[2023-02-26 12:51] VITALS: BP 138/69
== END 2023-02-26 17:15 | disposition home or self-care (01) | DRG 393 ==
LOC: ERS 15:04 → 2NO 18:24
PROVIDERS: ADMIT Internal Medicine Nephrology; ATTEND Family Medicine
PROC: 0DBK8ZX Excision of Ascending Colon, Via Natural or Artificial Opening Endoscopic, Diagnostic (ICD-10-PCS; principal; 2023-02-26)
PROC: 0DBP8ZX Excision of Rectum, Via Natural or Artificial Opening Endoscopic, Diagnostic (ICD-10-PCS; 2023-02-26)
DX: D12.2 Benign neoplasm of ascending colon (principal); K57.31 Diverticulosis of large intestine without perforation or abscess with bleeding; C20 Malignant neoplasm of rectum; I48.20 Chronic atrial fibrillation, unspecified; D64.9 Anemia, unspecified; E87.6 Hypokalemia; E78.5 Hyperlipidemia, unspecified; I50.9 Heart failure, unspecified; I11.0 Hypertensive heart disease with heart failure; Z88.2 Allergy status to sulfonamides; Z79.899 Other long term (current) drug therapy; Z90.710 Acquired absence of both cervix and uterus; Z96.642 Presence of left artificial hip joint; Z82.49 Family history of ischemic heart disease and other diseases of the circulatory system
CPT/HCPCS: 36415; 80048; 80053; 82274; 85025; 85027; 86850; 86900; 86901; 88305; 93005; J2704

== ENCOUNTER 2023-05-01 10:26 | Outpatient (CLI) | payer MEDICARE | END 2023-05-01 10:27 | disposition home or self-care (01) | LOC: BICCT 10:26 | PROVIDERS: ATTEND Internal Medicine | DX: C20 Malignant neoplasm of rectum (principal); D17.71 Benign lipomatous neoplasm of kidney; N85.2 Hypertrophy of uterus | CPT/HCPCS: 74177; 82565 ==